=== PATIENT | male | born 1965 | race Native Hawaiian/Other Pacific Islander ===

== ENCOUNTER 2019-11-08 13:53 | Emergency (ER) | payer OTHER ==
[~2019-11-08] VITALS: Ht 185.4 cm; Wt 99.8 kg
[2019-11-08 14:00] VITALS: BP 166/104; TEMP 97.9
== END 2019-11-08 15:15 | disposition home or self-care (01) ==
LOC: ED 13:53
PROC: 0HQGXZZ Repair Left Hand Skin, External Approach (ICD-10-PCS; principal; 2019-11-08)
DX: S61.012A Laceration without foreign body of left thumb without damage to nail, initial encounter (principal); W26.0XXA Contact with knife, initial encounter; Y92.89 Other specified places as the place of occurrence of the external cause
CPT/HCPCS: 90471; 90715; 99283

== ENCOUNTER 2022-07-03 10:39 | Outpatient (CLI) | payer OTHER ==
[2022-07-03 10:56] LABS: PLATELET COUNT 216 K/uL (142-355)
[2022-07-03 11:06] LABS: POTASSIUM 4.4 mmol/L (3.6-5.2)
== END 2022-07-03 19:27 | disposition home or self-care (01) ==
LOC: LABW 10:39
PROVIDERS: ATTEND Nurse Practitioner Family
DX: L40.0 Psoriasis vulgaris (principal); Z79.899 Other long term (current) drug therapy
CPT/HCPCS: 36415; 80053; 80074; 85027; 86480

== ENCOUNTER 2022-10-17 08:19 | Outpatient (CLI) | payer OTHER | END 2022-10-17 19:14 | disposition home or self-care (01) | LOC: RAD 08:19 | PROVIDERS: ATTEND Nurse Practitioner | DX: R06.02 Shortness of breath (principal) ==